=== PATIENT | female | born 1945 | race Caucasian/White ===

== ENCOUNTER 2023-06-03 18:49 | Observation (INO) | payer MEDICARE, OTHER, SELFPAY ==
[2023-06-03] VITALS (21 sets, daily range): BP systolic 100–189; BP diastolic 42–118; BMI 29.7; BMI 29.2
--- NOTE | 2023-06-03 15:05 | EDRN ---
with Dr. Cotton at the pts bedside and with his approval, a stroke alert was called due to the pts symptoms, this RN called the pts son and got the pts onset of symptoms which was today at 1400 and last known well was today at 1400 which was
verified by the pts friend with whom she was with at the Deli
[2023-06-03 15:19] LABS: % Basophils 0.7 % (0-2); % Eosinophils 1.4 % (0-6); % Immature Granulocytes 0.7 % (0-0.5); % Lymphocytes 33.9 % (20.5-51.1); % Monocytes 10.3 % (1.7-9.3); Absolute Basophils 0.1 10^3/uL (0-0.2); Absolute Eosinophils 0.1 10^3/uL (0-0.7); Absolute Immature Granulocytes 0.1 10^3/uL (0-0.05); Absolute Lymphocytes 2.9 10^3/uL (1.2-3.4); Absolute Monocytes 0.9 10^3/uL (0.1-0.6); Absolute Neutrophils 4.6 10^3/uL (1.4-6.5); Hematocrit 33.7 % (37.0-47.0); Mean Corp Hgb Conc. 35.6 g/dL (33.0-37.0); Mean Corpuscular Hgb 32.5 pg (27.0-31.0); Mean Corpuscular Volume 91.3 fL (81.0-99.0); Nucleated Red Blood Cells % 0 %; Platelet Count 307 10^3/uL (130-400); Red Blood Cell Count 3.69 10^6/uL (4.20-5.40); Red Cell Dist. Width 12.1 % (11.5-14.5); White Blood Cell Count 8.6 10^3/uL (4.8-10.8)
[2023-06-03] MEDS: NSS 1000 IV ×2 (15:20→22:23)
--- NOTE | 2023-06-03 15:23 | EDRN ---
the pts son, daughter in law, and friend whom was with her at the restaurant are currently at the pts bedside
[2023-06-03 15:32] LABS: ALT (SGPT) 17 U/L (0-35); AST (SGOT) 30 U/L (14-36); Albumin 3.9 g/dl (3.5-5.0); Alkaline Phosphatase 121 U/L (38-126); Blood Urea Nitrogen 17 mg/dl (7-17); Calcium 10.2 mg/dl (8.4-10.2); Carbon Dioxide 17 mmol/L (22-30); Chloride 103 mmol/L (98-107); Estimated Creatinine Clearance 38 ml/min; Glucose 114 mg/dl (70-99); Sodium 130 mmol/L (135-145); Total Bilirubin 0.4 mg/dl (0.2-1.3); Total Protein 6.2 g/dl (6.3-8.2); eGFR 41.57
--- NOTE | 2023-06-03 15:34 | EDRN ---
Dr. Cotton currently at the pts bedside speaking with the pts son, daughter in law, and friend, the pt is awaiting for second CT scan, Berta DELEON currently with the pt
[2023-06-03 15:39] LABS: COVID-19 Antigen Negative (Negative)
[2023-06-03 16:40] LABS: INR 1.13; PT 14.3 Sec (11.4-14.6)
[2023-06-03 16:41] LABS: APTT 28.4 Sec (23.4-35.0)
--- NOTE | 2023-06-03 17:02 | ED.GENMED ---
History of Present Illness
General
Chief Complaint: Fainting/Passed Out
Source: patient and ambulance crew
Time Seen by Provider: 06/03/23 15:01
Travel History
Have you had any contact with someone who has COVID-19?: Unable to Answer
Do you have any symptoms of coronavirus? Fever > 100 degrees, chills, cough, shortness of breath, sore throat, loss of taste or smell, muscle aches, or headache?: No
History of Present Illness
History of Present Illness:
this is an 78yo female who presents after she passed out at a deli with a friend. on arrival the pt cannot clearly communicate the course of events. However, her friend showed up about 20 minutes after arrival to give history. She had ordered a
sandwich and was going to pay in her card on the counter and just collapsed to the ground. bystanders called 911 and checked her pulse. no cpr was needed. on my evaluation on arrival, the pt was aphasic making hx taking limited. pt denies cp. does
states she suspects she hit her head.
Past History
Past History
ED Past Medical History: HTN and Other (Cataracts, tinnitus,)
ED Past Surgical History: Appendectomy, Gynecological and Orthopedic
Phy Exam
Physical Exam
Physical Exam:
Initial exam
CONSTITUTIONAL Patient alert and oriented to person. Vital signs reviewed.
HEAD atraumatic, normocephalic.
EYES eyelids normal to inspection, Pupils equally round and reactive to light, Extraocular muscles intact, Conjunctiva normal, Sclera normal.
NECK normal range of motion, Trachea midline, no jugular venous distention.
RESPIRATORY CHEST No respiratory distress noted, Chest expansion equal, Bilateral breath sounds clear.
CARDIOVASCULAR regular rate and rhythm, Heart sounds normal.
ABDOMEN abdomen nontender, Bowel sounds normal. No distention.
BACK normal inspection, no obvious deformities
UPPER EXTREMITY range of motion normal, Motor strength normal, no cyanosis, no edema.
LOWER EXTREMITY range of motion normal, Motor strength normal, no cyanosis, no edema.
NEURO moderately aphasic, no pronator drift, no focal motor deficits, Cranial Nerves intact to screening exam.
SKIN skin warm, dry, and normal in color.
Course
Orders/Labs/Results
Orders:
Orders
06/03/23 14:53
Electrocardiogram (*1) Urgent
Reason for Study: Vertigo / Dizzy
EKG- Treatment ONCE
CR Chest - 2 Views Urgent
Comment:
Reason For Exam: shortness of breath
06/03/23 14:54
Complete Blood Count/With Diff Urgent
Comprehensive Metabolic Panel Urgent
Influenza A+B Rapid Molecular Urgent
TANNA Source: Nasal Swab
Specimen Description:
06/03/23 14:55
COVID-19 Antigen Urgent
Source: Nasal Swab
06/03/23 15:07
CT Cervical Spine W/o Iv Contr Stat
Comment:
Reason For Exam: fall
CT Head W/o Cont STROKE ALERT Urgent
Comment:
Reason For Exam: aphasia, fall
06/03/23 15:17
CT Head/Neck Ang STROKE ALERT Urgent
Comment:
Reason For Exam: aphasia
06/03/23 15:18
0.9% Sodium Chloride 1000 ml [Nss] 1,000 ml IV BOLUS
06/03/23 16:13
PTT Urgent
Prothrombin Time Urgent
Abnormal Lab Results
06/03/23
14:54
RBC 3.69 L 10^6/uL
(4.20-5.40)
Hct 33.7 L %
(37.0-47.0)
MCH 32.5 H pg
(27.0-31.0)
Abs Immat Gran (auto) 0.1 H 10^3/uL
(0-0.05)
Absolute Monos (auto) 0.9 H 10^3/uL
(0.1-0.6)
Immature Gran % 0.7 H %
(0-0.5)
Monocytes % 10.3 H %
(1.7-9.3)
Sodium 130 L mmol/L
(135-145)
Carbon Dioxide 17 L mmol/L
(22-30)
Creatinine 1.3 H mg/dL
(0.6-1.0)
Glucose 114 H mg/dl
(70-99)
Total Protein 6.2 L g/dl
(6.3-8.2)
06/03/23 14:54
06/03/23 14:54
Vital Signs
Initial and Last Documented VS:
Initial Vital Signs
Temp Pulse Resp BP Pulse Ox
97.5 F 76 20 104/42 100
06/03/23 14:55 06/03/23 14:55 06/03/23 14:55 06/03/23 14:55 06/03/23 14:55
Last Documented Vital Signs
Temp Pulse Resp BP Pulse Ox
97.5 F 82 10 155/73 98
06/03/23 14:55 06/03/23 16:31 06/03/23 16:31 06/03/23 16:31 06/03/23 16:31
MDM/Problems Addressed
Differential Diagnosis Includes:
CVA, arrhythmia, hypoglycemia, hypovolemia, electrolyte balance, orthostatic hypotension
MDM/Problems Addressed:
Syncope, head injury, TIA
*Radiology
Radiology exam reviewed: preliminary read by ED provider (No obvious intracranial hemorrhage) and radiology read reviewed
*Pulse Oximetry
Patient hypoxic: no
*EKG
Interpreted by ED Provider?: Yes
Interpretation: abnormal
Rate: normal
Rhythm: sinus
Gary: left axis deviation
QRS Pattern: poor R-wave progression
Ischemia: non-specific ST changes
*Manager Style Interpretation
Rate: normal
Interpretation: normal
Rhythm: sinus
*Critical Care Note
Total Time (30-74mins, 75-104mins- exclusive of procedures): 40 minutes
Data Reviewed
Review of Other/Old Records Reveals: Discharge Summary (From August 2021 reviewed)
Source: patient, family, ambulance crew and other (Friend)
Prescriptions/Medications Considered But Not Given:
Considered TNK but upon arriving back from CT, patient's symptoms have completely resolved and her neuro exam is baseline
Patient Management
Discussion with other providers: Hospitalist and Mri Technician (case d/w neurology)
Escalation/DeEscalation of care consider admission/obs:
78-year-old female presents after she had a syncopal event at a store. On arrival she was significantly aphasic. A stroke alert was initiated. Taken to CT scan. Family later arrived and advises that she has a history of a 'bleeding disorder'.
Case was discussed with neurology. Fortunately, her CTA was unremarkable and upon returning from CTA, her aphasia has resolved. On repeat exam her symptoms have resolved completely and her exam is at baseline. No TNK now. Admit.
ED Attending Note
-
Portions of this chart may have been created with voice recognition software.� Occasional wrong word or��sound alike� substitutions may have occurred due to the inherent limitations of voice recognition software.
Discharge Plan
Departure
Patient Disposition: Admit
Date of Disposition: 06/03/23
Time of Disposition: 17:03
Admit to: Telemetry
Presentation/result/management discussed w/ accepting MD/DO: Hospitalist
Discharge Problem:
Syncope and collapse, Head injury, TIA (transient ischemic attack)
Prescriptions:
No Action
polyethylene glycol 3350 17 GRAMS powder in packet
17 grams PO PRN PRN (Reason: constipation) Qty: 0
calcium carbonate 600 MG tablet
600 mg PO DAILY
Patient Comments:
w D3
gabapentin 100 MG capsule
100 mg PO HS
estradiol 1 APPLIC cream
1 applic vaginal HS
cholecalciferol (vitamin D3) 1,000 UNITS tablet
1,000 units PO DAILY
wt-zn-tqhl-FA-Ca carb-vit K [Women's Daily Formula] 1 EACH tablet
1 ea PO DAILY
mupirocin 1 APPLIC ointment
1 applic topical BID Qty: 1 0RF
prednisone 10 MG tablet
40 mg PO TAPER Qty: 20 0RF
Rx Instructions:
take with food
POST-OP USE
hydrocodone-acetaminophen 1 TABLET tablet
1 tab PO Q4HPRN PRN (Reason: moderate-severe pain) Qty: 30 0RF
Rx Instructions:
Dx total joint replacement
ongoing therapy
1 tab moderate pain or 2 if pain severe
meloxicam [Mobic] 15 MG tablet
15 mg PO DAILY Qty: 14 0RF
Rx Instructions:
take with food
space out 2 hours from aspirin
famotidine 20 MG tablet
20 mg PO HS Qty: 30 0RF
ondansetron 4 MG tablet,disintegrating
4 mg PO Q6H PRN (Reason: n/v) Qty: 15 0RF
diltiazem HCl 240 MG capsule,extended release 24hr
240 mg PO DAILY
sennosides [senna] 8.6 MG tablet
17.2 mg PO BID 0RF
acetaminophen 325 MG tablet
650 mg PO Q4HWA 0RF
aspirin 325 MG tablet
325 mg PO DAILY 0RF
magnesium hydroxide 30 ML suspension
30 ml PO DAILYPRN PRN (Reason: constipation) 0RF
docusate sodium 100 MG capsule
100 mg PO BID 0RF
lisinopril 20 MG tablet
30 mg PO DAILY Qty: 0 0RF
Rx Instructions:
hold systolic blood pressure <130
Referrals:
Wade Sheehan DO [Family Provider] -
Interventions
Interventions:
*Risk Screen - Suicide Last Done: 06/03/23 14:55
*General Assessment Last Done: 06/03/23 14:55
*Neglect/Abuse Screening Last Done: 06/03/23 14:55
ED- Fall Risk Assessment Last Done: 06/03/23 14:55
*ED COVID-19 Vaccine History Last Done: 06/03/23 14:55
ED- Cardiac Assessment Last Done: 06/03/23 14:55
ED- Neurological Assessment Last Done: 06/03/23 15:05
--- NOTE | 2023-06-03 18:09 | HPS.HSE ---
Addendum entered and electronically signed by Jimmy Harrison MD 06/03/23 18:48:
I saw and examined the patient.
The SENIOR JAVASCRIPT DEVELOPER or PA's note was reviewed and I agree with the note.
Comment: 78-year-old female with past medical history of hypertension, osteoarthritis came to the hospital after syncopal episode. Per patient prior to passing out she felt hot and then later passed out. Denies any chest pain, shortness of breath.
In the ER patient had aphasia so stroke alert was called. CT scan negative for hemorrhage. Check MRI. Consult neurology. Check UA. Check orthostatics. History of hyponatremia, sodium 130. Monitor
General: Comfortable and Conversant; No Fever or Chills
HEENT: NormoCephalic, Anicteric, Moist mucous membranes
Respiratory: Clear; No Wheezes, Rales or Rhonchi
Cardiac: S1/S2 and Regular Rhythm; No Murmur
GI: Non Tender, Non Distended and Normal Bowel Sounds
Genito-urinary: Deferred by me
Musculoskeletal: No Clubbing, No Cyanosis, No Edema and Other (Tenderness over left anterior thigh no appreciated contusion or abrasion)
Neuro: AO x 3, No Motor Deficits, Nonfocal/grossly intact
Psych: Calm
I spent a total of 77 minutes with the patient or on the floor. More than 50% of this time involved counseling and coordination of care.
Original Note:
Family Physician
-
Family Physician: Wade Sheehan
Chief Complaint
-
Syncope, confusion
History of Present Illness
78-year-old female who was at the [facility] with a friend when she stated that she started to feel hot. She reports she asked her friend Blanca to help remove her jacket. When she turned around she apparently then had a syncopal episode and woke up on
the ground. She reports she was having some difficulty talking now that she remembers. On arrival to the ER she was noted to be slightly confused talking but with some word replacement. She does report feeling currently lightheaded and dizzy.
Her blood pressure is labile going from 100 systolic to 180. She reports she just had a follow-up with her gas operation manager comprehensive cardiology at [facility] 1 month ago where she had a normal echo. She also had recent follow-up
with her oncologist and had normal mammogram as outpatient.
She has past medical history of hypertension, tinnitus, cataracts, obesity, OA, right-sided breast cancer with right lumpectomy and radiation times 06 February 2022
Medical History
Past Medical History
Past Medical History: Reports Other
Additional Past Medical History:
hypertension
, tinnitus,
cataracts
obesity
OA
Right-sided breast cancer with radiation x 20 and lumpectomy [facility]
Past Surgical History: Reports Other (Appendectomy, Right-sided breast cancer with radiation x 20 and lumpectomy [facility])
Social History
Tobacco: Non-smoker
Alcohol: None
Drug: None
Employment: Retired
Family History
Family History: Other (Mother history of CVA age 83, Alzheimer's, father CHF, COPD, alcohol abuse age 79)
Allergies / Home Medications
Allergies reflects when Allergies were last updated in [facility].
Home Medications with original date entered in [facility]
Allergy/Medication List:
Allergies
Allergy/AdvReac Type Severity Reaction Status Date / Time
metronidazole [From Metrogel] Allergy Rash Verified 08/23/21 05:58
Home Medications
anastrozole 1 mg tablet 1 mg PO DAILY 06/03/23
calcium carbonate 600 mg calcium (1,500 mg) tablet (Calcium) 600 mg PO DAILY 06/03/23
carboxymethylcellulose sodium 1 % eye liquid gel drops 1 drp BOTH EYES BID 06/03/23
cholecalciferol (vitamin D3) 25 mcg (1,000 unit) tablet 25 mcg PO DAILY 06/03/23
diltiazem HCl 240 mg capsule,24 hr,extended release 240 mg PO DAILY 06/03/23
estradiol 0.01% (0.1 mg/gram) vaginal cream 1 appful vaginal .2 TIMES A WEEK@2200 06/03/23
gabapentin 100 mg capsule 100 mg PO HS 06/03/23
lisinopril 30 mg tablet 30 mg PO DAILY 06/03/23
cecrysit-zvl-wiba-FA-Ca carb-vit K 18 mg iron-400 mcg-500 mg tablet 1 tab PO DAILY 06/03/23
polyethylene glycol 3350 17 gram oral powder packet (Miralax) 17 g PO DAILY PRN constipation 06/03/23
Review of Systems
-
History Source: Patient and Family
A 12 point ROS was completed and negative except as noted: Yes
Constitutional: Denies Fever or Fatigue
Respiratory: Denies Cough or Trouble Breathing
Cardiac: Reports Syncope; Denies Chest Pain or Palpitations
Abdomen/GI: Denies Abdominal Pain, Nausea, Vomiting or Diarrhea
: Denies Dysuria, Frequency or Flank Pain
Musculoskeletal: Reports Other; Denies Joint Pain or Edema
Skin: Denies Itching or Rash
Neurological: Reports Dizzy; Denies Headache
Endocrine: Reports See HPI
Hematologic/Lymphatic: Reports See HPI
Psych: Reports Calm
Physical Exam
Vital Signs
Vital Signs
Temp Pulse Resp BP Pulse Ox
97.5 F 82 10 155/73 98
06/03/23 14:55 06/03/23 16:31 06/03/23 16:31 06/03/23 16:31 06/03/23 16:31
Physical Exam
General: Comfortable and Conversant; No Fever or Chills
HEENT: NormoCephalic, Anicteric, Moist mucous membranes, PERRLA, [place] Conjunctivae and No Ptosis
Respiratory: Clear; No Wheezes, Rales or Rhonchi
Cardiac: S1/S2 and Regular Rhythm; No Murmur, Rub, Gallop or Peripheral Edema
GI: Non Tender, Non Distended and Normal Bowel Sounds
Genito-urinary: Deferred by me
Musculoskeletal: No Clubbing, No Cyanosis, No Edema and Other (Tenderness over left anterior thigh no appreciated contusion or abrasion)
Skin: Warm and Dry; No Rash or Jaundice
Neuro: AO x 3, No Motor Deficits, Nonfocal/grossly intact, Cranial Nerves Intact and No Sensory Deficits; No Slurred Speech, Facial Droop or Tremors
Psych: Calm
Laboratory Results
-
06/03/23 14:54
06/03/23 14:54
Laboratory Results
PT 14.3 Sec (11.4-14.6) 06/03/23 16:13
INR 1.13 06/03/23 16:13
APTT 28.4 Sec (23.4-35.0) 06/03/23 16:13
Total Bilirubin 0.4 mg/dl (0.2-1.3) 06/03/23 14:54
AST 30 U/L (14-36) 06/03/23 14:54
ALT 17 U/L (0-35) 06/03/23 14:54
Alkaline Phosphatase 121 U/L (38-126) 06/03/23 14:54
Impression/Plan
-
Impression/plan:
Observation telemetry
#Acute syncope with aphasia concern for CVA/TIA versus orthostatic hypotension
COVID/flu negative
-Neurochecks every 4 hours
-Orthostatic vitals bid
-Check cortisol, TSH with free T4 reflex in a.m.
-MRI brain
-UA CARD FEEDER reflex
-Consult neurology
-PT/OT/case management eval
-Speech therapy eval
Head and neck CTA: No significant vascular occlusion, aneurysm or dissection
CT head: No acute intracranial abnormality
Cervical spine: No acute fracture. Multilevel degenerative changes of the cervical spine
CXR : No acute cardiopulmonary process
EKG: Sinus rhythm with first-degree AV block 76 bpm, QTc 497 MS
#Labile HTN/hypotension
100/73> 155/73
-Hold lisinopril 30 mg daily
-cont diltiazem 240 mg daily with hold parameters
ROMIE
Creat 1.3 prior baseline of 18 August 2021
-Hold lisinopril 30 mg daily
#OA
no meds
#Obesity due to excess calorie consumption�BMI 29.7 kg
Healthy heart diet, weight loss recommended
DVT prophylaxis
SCDs
Full code
[2023-06-03] MEDS: TYLENOL 1000 MG PO (18:12)
[2023-06-03] MEDS: ASPIRIN 325 MG PO (19:05)
--- NOTE | 2023-06-03 22:00 | PTCARENOTE ---
Received pt from ED, pt unable to walk due to feeling 'weak'. VSS, no complaints of pain. IVF as ordered
[2023-06-03] MEDS: NEURONTIN 100 MG PO (22:23)
[2023-06-03] MEDS: REFRESH CELLUVISC GEL BOTH EYES (22:38)
[2023-06-04] VITALS (7 sets, daily range): BP systolic 134–171; BP diastolic 63–86; PULSE 71–106; O2SAT 98; BMI 29.4
[2023-06-04 08:09] LABS: % Basophils 0.4 % (0-2); % Eosinophils 1.8 % (0-6); % Immature Granulocytes 0.6 % (0-0.5); % Lymphocytes 15.9 % (20.5-51.1); % Monocytes 10.2 % (1.7-9.3); % Neutrophils 71.1 % (42.2-75.2); Absolute Eosinophils 0.2 10^3/uL (0-0.7); Absolute Immature Granulocytes 0.1 10^3/uL (0-0.05); Absolute Lymphocytes 1.4 10^3/uL (1.2-3.4); Absolute Monocytes 0.9 10^3/uL (0.1-0.6); Absolute Neutrophils 6.1 10^3/uL (1.4-6.5); Hematocrit 32.8 % (37.0-47.0); Hemoglobin 11.1 g/dL (12.0-16.0); Mean Corp Hgb Conc. 33.8 g/dL (33.0-37.0); Mean Corpuscular Hgb 31.8 pg (27.0-31.0); Mean Platelet Volume 9.1 fL (7.4-10.4); Nucleated Red Blood Cells % 0 %; Platelet Count 262 10^3/uL (130-400); Red Blood Cell Count 3.49 10^6/uL (4.20-5.40); Red Cell Dist. Width 12.4 % (11.5-14.5); White Blood Cell Count 8.5 10^3/uL (4.8-10.8)
[2023-06-04 08:46] LABS: ALT (SGPT) 14 U/L (0-35); AST (SGOT) 25 U/L (14-36); Albumin 3.3 g/dl (3.5-5.0); Alkaline Phosphatase 100 U/L (38-126); Blood Urea Nitrogen 16 mg/dl (7-17); Carbon Dioxide 26 mmol/L (22-30); Chloride 100 mmol/L (98-107); Estimated Creatinine Clearance 49 ml/min; Glucose 73 mg/dl (70-99); HDL Cholesterol 57 mg/dl; LDL Cholesterol, Calculated 65 mg/dl; Sodium 131 mmol/L (135-145); Total Bilirubin 0.4 mg/dl (0.2-1.3); Total Cholesterol 142 mg/dl (50-199); Total Protein 5.5 g/dl (6.3-8.2); Triglyceride 104 mg/dl (10-149); Very Low Density Lipoprotein 20 mg/dl (0-30); eGFR 56.95
[2023-06-04] MEDS: REFRESH CELLUVISC GEL 1 DROPS BOTH EYES ×2 (09:18→20:51)
[2023-06-04] MEDS: ARIMIDEX 1 MG PO (09:18)
[2023-06-04 09:19] LABS: Cortisol, Random 13.5 ug/dl
[2023-06-04] MEDS: CARDIZEM CD 240 MG PO (09:21)
[2023-06-04] MEDS: OSCAL CAL 500 500 MG PO (09:22)
[2023-06-04] MEDS: VITAMIN D3 (cholecalciferol) 25 MCG PO (09:22)
[2023-06-04] MEDS: LOW STRENGTH ASPIRIN 81 MG PO (09:22)
[2023-06-04] MEDS: LIDOCAINE 4% PATCH 1 PATCH TOPICAL (10:20)
--- NOTE | 2023-06-04 10:32 | PTCARENOTE ---
Patient with complaints of pain in lower back. MD aware. Lidocaine patch ordered and applied. Xray of area completed. Tylenol as ordered for pain relief if needed. Air cushion ordered for patient comfort.
--- NOTE | 2023-06-04 12:39 | W.PN.HOSP.TC ---
Today's Communication/Plan
-
Monitor vital signs see plan
MRI pending
Continue monitor orthostatics
Apply teds
pt/ot
CT coccyx
Assessment / Plan
Assessment / Plan
� ��Head and neck CTA: No significant vascular occlusion, aneurysm or dissection
�� � � � � ��CT head:�No acute intracranial abnormality
�� � � � ���Cervical spine:�No acute fracture.� Multilevel degenerative changes of the cervical spine
�� � � � � � CXR : No acute cardiopulmonary process
General: Comfortable and Conversant; No Fever or Chills
HEENT: NormoCephalic, Anicteric, Moist mucous membranes
Respiratory: Clear; No Wheezes, Rales or Rhonchi
Cardiac: S1/S2 and Regular Rhythm; No Murmur
GI: Non Tender, Non Distended and Normal Bowel Sounds
Genito-urinary: Deferred by me
Musculoskeletal: No Clubbing, No Cyanosis, No Edema and Other (Tenderness over left anterior thigh no appreciated contusion or abrasion)
Neuro: AO x 3, No Motor Deficits, Nonfocal/grossly intact
Psych: Calm
Acute syncope with aphasia concern for CVA/TIA versus orthostasis or vasovagal event
COVID/flu negative
-Neurochecks
-Orthostatic vitals bid; HR did went up
-Cortisol, TSH normal
-MRI brain 10
-UA KILN CAR REPAIRER reflex
-Consult neurology
-PT/OT
cw aspirin
TEDS
Coccyx pain
check xray shows probably coccyx fx; check CT
lidocane patch
#Labile HTN/hypotension
-Hold lisinopril
-cont diltiazem 240 mg daily with hold parameters
renal insufficiency
Monitor
-Hold lisinopril 30 mg daily
#OA
no meds
#Obesity due to excess calorie consumption�BMI 29.7 kg
DVT prophylaxis
lovenox
Full code
Anticipated Discharge: Within 24 hours
Subjective/Interval History
-
Date of Service: June 04, 2023
denies pain
Objective Data
-
Labs:
Laboratory Results
06/04/23
07:05
WBC 8.5
Hgb 11.1 L
Hct 32.8 L
Plt Count 262
Sodium 131 L
Potassium 4.0
Chloride 100
Carbon Dioxide 26
BUN 16
Creatinine 1.0
Glucose 73
Calcium 9.0
Total Bilirubin 0.4
AST 25
ALT 14
Alkaline Phosphatase 100
Vital Signs:
Vital Signs
Temp Pulse Resp BP Pulse Ox
98.2 F 71 16 138/68 97
06/04/23 09:22 06/04/23 09:22 06/04/23 09:22 06/04/23 09:22 06/04/23 09:22
I&O
06/03/23 06/04/23 06/05/23
06:59 06:59 06:59
Output Total 400 / 400
Balance -400 / -400
--- NOTE | 2023-06-04 13:35 | CON.NEURO4 ---
Addendum entered and electronically signed by Gretchen Schultz, DO 06/04/23 19:34:
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
Continue ASA 81mg daily given old stroke on MRI (of which she was not aware).
Needs outpatient f/u with neurology. Signing off, please call with further questions.
Original Note:
Consultation - Neurology 4
-
CONSULTING PHYSICIAN: Marion
REFERRING PHYSICIAN: ED
DICTATED BY: Marion
DATE/TIME OF REQUEST: 06/03/23 in the evening
DATE/TIME OF CONSULTATION: 06/04/23 at 1145
Reason for Consultation: stroke alert
History of Present Illness:
78-year-old female with a past medical history of hypertension and breast cancer brought in yesterday after a witnessed syncopal episode. She was standing in a deli when she 'felt hot all over' and passed out. Loss of consciousness lasted about 90
seconds to 2 minutes in duration. No clear convulsive activity associated. No bowel or bladder incontinence. She hit the left temporoparietal region as she fell. When she woke up she had some aphasia. This eventually resolved in the ER. No
other associated focal neurological deficits. She has had 4 total episodes of loss of consciousness in her life, some associated with blood draw/hot weather. She follows closely with cardiology at [facility]. She has never had a seizure. No
clear history of [employer] infection or family history of seizure. Remains back to baseline since admission.
Past Medical History:
hypertension
tinnitus
cataracts
obesity
�OA
Right-sided breast cancer with radiation x 20 and lumpectomy
Past Surgical History:
Appendectomy
Right-sided breast cancer with radiation x 20 and lumpectomy at [facility]
Social History
Tobacco: Non-smoker
Alcohol: None
Drug: None
Employment: Retired
Family History:
Mother history of CVA at age 83, Alzheimer's
Father CHF, COPD, alcohol abuse
Allergies
metronidazole [From Metrogel] Allergy (Verified 08/23/21 05:58)
Rash
Home Medications
Medication Instructions Recorded
anastrozole 1 mg tablet 1 mg PO DAILY BREAST CANCER 06/03/23
calcium carbonate 600 mg calcium 600 mg PO DAILY Supplement 06/03/23
(1,500 mg) tablet (Calcium)
carboxymethylcellulose sodium 1 % 1 drp BOTH EYES BID Eye Condition 06/03/23
eye liquid gel drops
cholecalciferol (vitamin D3) 25 25 mcg PO DAILY Supplement 06/03/23
mcg (1,000 unit) tablet
diltiazem HCl 240 mg capsule,24 240 mg PO DAILY Blood Pressure 06/03/23
hr,extended release
estradiol 0.01% (0.1 mg/gram) 1 appful vaginal .2 TIMES A 06/03/23
vaginal cream WEEK@2200
gabapentin 100 mg capsule 100 mg PO HS Pain 06/03/23
lisinopril 30 mg tablet 30 mg PO DAILY Blood Pressure 06/03/23
ookwfbzl-ler-zfkz-FA-Ca carb-vit K 1 tab PO DAILY Supplement 06/03/23
18 mg iron-400 mcg-500 mg tablet
polyethylene glycol 3350 17 gram 17 g PO DAILY PRN constipation 06/03/23
oral powder packet (Miralax)
Review of Symptoms:
Patient denies any fever, headache, chest pain, shortness of breath, GI or symptoms.
�Per the HPI.�All systems are reviewed negative except above.
Vital Signs
Temp Pulse Resp BP Pulse Ox
98.2 F 71 16 138/68 97
06/04/23 09:22 06/04/23 09:22 06/04/23 09:22 06/04/23 09:22 06/04/23 09:22
Lab Results
06/04/23 07:05
06/04/23 07:05
PT 14.3 Sec (11.4-14.6) 06/03/23 16:13
INR 1.13 06/03/23 16:13
APTT 28.4 Sec (23.4-35.0) 06/03/23 16:13
Sodium 131 mmol/L (135-145) L 06/04/23 07:05
Potassium 4.0 mmol/L (3.5-5.1) 06/04/23 07:05
BUN 16 mg/dl (7-17) 06/04/23 07:05
Glucose 73 mg/dl (70-99) 06/04/23 07:05
Calcium 9.0 mg/dl (8.4-10.2) 06/04/23 07:05
LDL Cholesterol, Calc 65 mg/dl 06/04/23 07:05
Physical Exam:
The patient is afebrile, heart sounds S1 and S2 are regular, and chest is clear to auscultation bilaterally.
NIH Stroke Scale:
I performed the NIH stroke scale on the patient on 06/04/23 at 1145. The patient scored 0 points on the NIH stroke scale assessment.
Neurologic Examination:
The patient is awake, alert and oriented x 3. She is able to follow commands and answer questions appropriately. There is no aphasia or dysarthria. On cranial nerve assessment, pupils are 3 mm bilateral, round and reactive to light and
accommodation. Visual waters are full. Extraocular movements are intact. Facial sensations are intact and bilaterally symmetrical, there is no facial asymmetry. Hearing is intact bilaterally to normal conversation volume. Tongue palate and uvula
are midline. Sternocleidomastoid strengths are full bilaterally. Motor strengths are 5/5 bilateral upper and lower extremities on medical research [place] scale. There is no drift or involuntary movement noted. Deep tendon reflexes are 2+ bilateral
upper and lower extremities and Babinski is absent bilaterally. Sensations of pain, touch, temperature and vibration are intact and bilaterally symmetrical. There was no extinction noted on double simultaneous stimulation. Coordination is intact by
finger to nose bilaterally.
Neuro Imaging:
HCT/CT Cspine wo:
'1. No acute intracranial abnormality noted. ASPECTS Score: 10
2. No acute fracture or subluxation of the cervical spine. Multilevel degenerative changes of the cervical spine.'
CTA head
No significant vascular occlusion, aneurysm or dissection.
CHAVA BUENROSTRO is a 78 year old F who has presented to the hospital with aphasia after an episode of LOC resulting in L parietal/temporal head trauma. No clear associated seizure activity. Aphasia resolved in the ED. Has remained at baseline since.
Differentials for the patient's presentation include:
1. postconcussive aphasia with L parietal/temporal head trauma with syncope
2. seizure with postictal aphasia--less likely
3. TIA--less likely
Patient has the following risk factors for their symptoms: age, htn, cancer hx
IV Tenecteplase/IAT candidacy: not a candidate given resolution of symptoms/CTA negative for clot
Recommendations:
1. MRI brain w/wo contrast
2. consider outpatient EEG
3. BP has been labile; follows with [facility]; continue orthostatics, TEDs
4. needs outpatient f/u with neurology in 4 weeks
5. continue ASA 81mg daily; no need for DAPT unless MRI shows stroke given lower likelihood of stroke/TIA as cause for symptoms.
Ok for d/c if MRI brain negative.
Discussed patient care with: ED, patient and her family
--- NOTE | 2023-06-04 15:36 | PTCARENOTE ---
Patient went for coccyx xray, MRI of head and CT of coccyx area today. Patient with complaints of headache when she returned from testing, otherwise neuro status unchanged. MD martinez and Tylenol ordered.
[2023-06-04] MEDS: TYLENOL 650 MG PO (15:41)
--- NOTE | 2023-06-04 15:55 | CM ---
Alert awake oriented patient who lives alone she lives in an apartment with no steps to enter living area.She is independent in driving and in all activities of daily living.Offered VN she declined.She uses no adaptive devices.
Had [facility] hx /No SNF hx
Pharmacy [facility] [address] [place]
PCP Dr Morley
PLAN Home declined VN
[2023-06-04] MEDS: LOVENOX 40 MG SC (17:54)
[2023-06-04] MEDS: NEURONTIN 100 MG PO (20:51)
[2023-06-05] VITALS (7 sets, daily range): BP systolic 124–169; BP diastolic 73–93; PULSE 74–113; BMI 29.3
[2023-06-05 08:40] LABS: % Basophils 0.4 % (0-2); % Eosinophils 2.8 % (0-6); % Immature Granulocytes 0.7 % (0-0.5); % Lymphocytes 21.8 % (20.5-51.1); % Neutrophils 63.3 % (42.2-75.2); Absolute Eosinophils 0.2 10^3/uL (0-0.7); Absolute Immature Granulocytes 0.1 10^3/uL (0-0.05); Absolute Lymphocytes 1.5 10^3/uL (1.2-3.4); Absolute Monocytes 0.8 10^3/uL (0.1-0.6); Absolute Neutrophils 4.5 10^3/uL (1.4-6.5); Hematocrit 34.4 % (37.0-47.0); Hemoglobin 12.1 g/dL (12.0-16.0); Mean Corp Hgb Conc. 35.2 g/dL (33.0-37.0); Mean Corpuscular Hgb 32.4 pg (27.0-31.0); Mean Corpuscular Volume 92.2 fL (81.0-99.0); Mean Platelet Volume 8.9 fL (7.4-10.4); Nucleated Red Blood Cells % 0 %; Platelet Count 264 10^3/uL (130-400); Red Blood Cell Count 3.73 10^6/uL (4.20-5.40); Red Cell Dist. Width 12.4 % (11.5-14.5); White Blood Cell Count 7.1 10^3/uL (4.8-10.8)
[2023-06-05 09:09] LABS: Blood Urea Nitrogen 15 mg/dl (7-17); Calcium 9.3 mg/dl (8.4-10.2); Carbon Dioxide 23 mmol/L (22-30); Chloride 101 mmol/L (98-107); Estimated Creatinine Clearance 54 ml/min; Glucose 83 mg/dl (70-99); Potassium 3.9 mmol/L (3.5-5.1); Sodium 133 mmol/L (135-145); eGFR > 60.00
[2023-06-05] MEDS: ARIMIDEX 1 MG PO (09:30)
[2023-06-05] MEDS: VITAMIN D3 (cholecalciferol) 25 MCG PO (09:31)
[2023-06-05] MEDS: OSCAL CAL 500 500 MG PO (09:31)
[2023-06-05] MEDS: REFRESH CELLUVISC GEL 1 DROPS BOTH EYES ×2 (09:31→20:50)
[2023-06-05] MEDS: CARDIZEM CD 240 MG PO (09:31)
[2023-06-05] MEDS: LOW STRENGTH ASPIRIN 81 MG PO (09:31)
[2023-06-05] MEDS: LIDOCAINE 4% PATCH 1 PATCH TOPICAL (09:32)
[2023-06-05] MEDS: MIRALAX 17 GRAMS PO (09:36)
--- NOTE | 2023-06-05 11:34 | W.PN.HOSP.TC ---
Today's Communication/Plan
-
see bold, follow orthostatic VS off lisinopril
Assessment / Plan
Assessment / Plan
Gen: NAD, AAOx3.
Eyes: EOMI, PERRLA, no scleral icterus.
Neck: supple.
CV: RRR, +S1/S2, no m/r/g.
Resp: CTAB, no rales, wheezes, or rhonchi.
Abd: +BS, soft, NT, ND
Skin: No rashes.
Neuro: CN 2-12 intact, non-focal.
Psych: Normal mood and affect.
CTA head/neck: No significant vascular occlusion, aneurysm or dissection
CT head:�No acute intracranial abnormality
CT C-spine:�No acute fracture.� Multilevel degenerative changes of the cervical spine
CXR: No acute cardiopulmonary process
CT Pelvis: No acute fractures. Chronic deformity of the coccyx.
MRI brain: No acute intracranial abnormality noted.
Acute syncope with aphasia:
-on admission DDx was CVA/TIA vs orthostasis vs vasovagal event
-acute CVA has been ruled out MRI brain NEG for acute CVA.
-cont ASA for old CVA
-neuro saw in c/s, has signed off
-COVID/flu negative
-Cortisol/TSH normal
-orthostatic VS positive
-PT/OT
-Tele reviewed, PVCs
-check echo
Other problemsL
Essential HTN: currently on Cardizem, home Lisinopril stopped
Coccyx pain, imaging with old deformity of the coccyx
Osteoarthritis
Obesity due to excess calories
FULL/Lovenox
Anticipated Discharge: Within 24 hours
Subjective/Interval History
-
Date of Service: June 05, 2023
Denies CP/SOB.
Objective Data
-
Labs:
Laboratory Results
06/05/23
07:30
WBC 7.1
Hgb 12.1
Hct 34.4 L
Plt Count 264
Sodium 133 L
Potassium 3.9
Chloride 101
Carbon Dioxide 23
BUN 15
Creatinine 0.9
Glucose 83
Calcium 9.3
Vital Signs:
Vital Signs
Temp Pulse Resp BP Pulse Ox
97.8 F 75 20 150/80 97
06/05/23 07:25 06/05/23 07:25 06/05/23 07:25 06/05/23 07:25 06/05/23 07:25
I&O
06/04/23 06/05/23 06/06/23
06:59 06:59 06:59
Intake Total 1440 / 1440
Output Total 400 / 400 1475 / 1475
Balance -400 / -400 -35 / -35
[2023-06-05] MEDS: LOVENOX 40 MG SC (17:17)
[2023-06-05] MEDS: NEURONTIN 100 MG PO (20:50)
[2023-06-06 03:19] VITALS: BP 135/64
[2023-06-06 07:20] VITALS: BP 122/79; BP 149/72; BP 156/84; PULSE 112; PULSE 73; PULSE 89
[2023-06-06] MEDS: LIDOCAINE 4% PATCH 1 PATCH TOPICAL (07:40)
[2023-06-06] MEDS: TYLENOL 650 MG PO (07:40)
[2023-06-06 08:16] LABS: % Basophils 0.6 % (0-2); % Eosinophils 4.2 % (0-6); % Immature Granulocytes 0.6 % (0-0.5); % Lymphocytes 20.9 % (20.5-51.1); % Monocytes 12.6 % (1.7-9.3); % Neutrophils 61.1 % (42.2-75.2); Absolute Eosinophils 0.3 10^3/uL (0-0.7); Absolute Lymphocytes 1.4 10^3/uL (1.2-3.4); Absolute Monocytes 0.9 10^3/uL (0.1-0.6); Absolute Neutrophils 4.2 10^3/uL (1.4-6.5); Hematocrit 32.4 % (37.0-47.0); Hemoglobin 11.2 g/dL (12.0-16.0); Mean Corp Hgb Conc. 34.6 g/dL (33.0-37.0); Mean Corpuscular Hgb 32.1 pg (27.0-31.0); Mean Corpuscular Volume 92.8 fL (81.0-99.0); Mean Platelet Volume 8.8 fL (7.4-10.4); Nucleated Red Blood Cells % 0 %; Platelet Count 250 10^3/uL (130-400); Red Blood Cell Count 3.49 10^6/uL (4.20-5.40); Red Cell Dist. Width 12.4 % (11.5-14.5); White Blood Cell Count 6.8 10^3/uL (4.8-10.8)
[2023-06-06 08:27] LABS: Blood Urea Nitrogen 19 mg/dl (7-17); Calcium 8.8 mg/dl (8.4-10.2); Carbon Dioxide 24 mmol/L (22-30); Chloride 105 mmol/L (98-107); Estimated Creatinine Clearance 54 ml/min; Glucose 80 mg/dl (70-99); Sodium 132 mmol/L (135-145); eGFR > 60.00
[2023-06-06] MEDS: ARIMIDEX 1 MG PO (08:33)
[2023-06-06] MEDS: OSCAL CAL 500 500 MG PO (08:33)
[2023-06-06] MEDS: LOW STRENGTH ASPIRIN 81 MG PO (08:33)
[2023-06-06] MEDS: REFRESH CELLUVISC GEL 1 DROPS BOTH EYES (08:33)
[2023-06-06] MEDS: VITAMIN D3 (cholecalciferol) 25 MCG PO (08:34)
[2023-06-06] MEDS: CARDIZEM CD 240 MG PO (08:34)
--- NOTE | 2023-06-06 10:33 | W.PN.HOSP.TC ---
Today's Communication/Plan
-
monitor vitals
see plan
dc today
son updated over the phone
Time of discharge 36 minutes
Assessment / Plan
Assessment / Plan
Gen: NAD, AAOx3.
Eyes: EOMI, PERRLA, no scleral icterus.
Neck: supple.
CV: RRR, +S1/S2, no m/r/g.
Resp: CTAB, no rales, wheezes, or rhonchi.
Abd: +BS, soft, NT, ND
Skin: No rashes.
Neuro: CN 2-12 intact, non-focal.
Psych: Normal mood and affect.
CTA head/neck: No significant vascular occlusion, aneurysm or dissection
CT head:�No acute intracranial abnormality
CT C-spine:�No acute fracture.� Multilevel degenerative changes of the cervical spine
CXR: No acute cardiopulmonary process
CT Pelvis: No acute fractures. Chronic deformity of the coccyx.
MRI brain: No acute intracranial abnormality noted.
Acute syncope with aphasia:
-on admission DDx was CVA/TIA vs orthostasis vs vasovagal event
-acute CVA has been ruled out MRI brain NEG for acute CVA.
-cont ASA for old CVA
-neuro saw in c/s, has signed off
-COVID/flu negative
-Cortisol/TSH normal
-orthostatic VS positive; now not symptomatic; advised TEDS. Patient to follow-up with PCP outpatient
-PT/OT
-Tele reviewed, PVCs
-check echo with mild AAS. Incidental 2 possible liver cyst. Patient to follow-up with primary care for abdominal ultrasound
Mild hyponatremia
Monitor
Other problemsL
Essential HTN: currently on Cardizem, home Lisinopril stopped
Coccyx pain, imaging with old deformity of the coccyx
Osteoarthritis
Obesity due to excess calories
FULL/Lovenox
Anticipated Discharge: Today
Subjective/Interval History
-
Date of Service: June 06, 2023
denies pain
Objective Data
-
Labs:
Laboratory Results
06/06/23
07:05
WBC 6.8
Hgb 11.2 L
Hct 32.4 L
Plt Count 250
Sodium 132 L
Potassium 4.0
Chloride 105
Carbon Dioxide 24
BUN 19 H
Creatinine 0.9
Glucose 80
Calcium 8.8
Vital Signs:
Vital Signs
Temp Pulse Resp BP Pulse Ox
98.4 F 73 16 149/72 95
06/06/23 07:20 06/06/23 07:20 06/06/23 07:20 06/06/23 07:20 06/06/23 07:20
I&O
06/05/23 06/06/23 06/07/23
06:59 06:59 06:59
Intake Total 1440 / 1440 780 / 780
Output Total 1475 / 1475 600 / 600
Balance -35 / -35 180 / 180
--- NOTE | 2023-06-06 11:02 | W.DCSUMMARY ---
Discharge Summary
Discharge Data
Date of Admission: 06/03/23
Date of Discharge: 06/06/23
-
Pending Results: No
Hospital Course
78-year-old female with past medical history of essential hypertension, osteoarthritis, obesity came to the hospital after syncopal episode. CT scan was initially checked which was negative for CVA. MRI brain was later done which was also negative
for acute CVA however did had old infarct. Patient was seen by neurology throughout hospitalization. Given old infarct patient was started on aspirin. Patient was also orthostatic positive so was started with teds. Cortisol and thyroid was
checked which was normal. Echocardiogram was also done which showed mild aortic stenosis. There was also incidental liver cyst for which patient instructed to follow-up with PCP outpatient. These findings were discussed with the son over the
phone prior to patient's discharge. Given his orthostatics, her lisinopril was stopped. Patient was also eval by physical therapy who recommended home. Once her symptoms improved, she was then discharged home with instructions to follow-up with
all her physicians outpatient.
Discharge Plan
-
Patient Disposition: Home (Routine Discharge)
Discharge Diagnosis/Procedures: Syncope
Orthostatic hypotension
Mild hyponatremia
old stroke
Incidental possible liver cyst
Diet: As tolerated
Activity: As tolerated
Driving Restrictions: As prior to admission
Bathing Restrictions: None
Others Tests: Ultrasound abdomen outpatient with primary care provider
Activity Restrictions/Additional Instructions:
Please follow-up with your data base administrator outpatient
Referrals:
Wade Sheehan DO [Family Provider] - in less than 1 week
Gretchen Schultz DO [Active] -
Prescriptions:
New
lidocaine 4 % Adhesive Patch,Medicated
1 patch topical DAILY Qty: 30 0RF
aspirin [Children's Aspirin] 81 mg Tablet,Chewable
81 mg PO DAILY Qty: 30 0RF
Continued
anastrozole 1 mg Tablet
1 mg PO DAILY
polyethylene glycol 3350 [Miralax] 17 gram Powder In Packet
17 g PO DAILY PRN (Reason: constipation)
diltiazem HCl 240 mg Capsule,Extended Release 24 Hr
240 mg PO DAILY
calcium carbonate [Calcium 600] 600 mg calcium (1,500 mg) Tablet
600 mg PO DAILY
gabapentin 100 mg Capsule
100 mg PO HS
estradiol 0.01 % (0.1 mg/gram) Cream
1 appful VAGINAL .2 TIMES A WEEK@2200
carboxymethylcellulose sodium 1 % Drops, Liquid Gel
1 drp BOTH EYES BID
cholecalciferol (vitamin D3) 25 mcg (1,000 unit) Tablet
25 mcg PO DAILY
yn-lj-ogib-FA-Ca carb-vit K 18 mg iron-400 mcg-500 mg Tablet
1 tab PO DAILY
Discontinued
lisinopril 30 mg Tablet
30 mg PO DAILY
Discharge Orders:
Discharge Patient (As Directed); Ordered 06/06/23
Ordered By: Jimmy Harrison
Discharge Date and Time
Discharge Date/Time: 06/06/23 12:45
[2023-06-06 11:25] VITALS: BP 127/71
== END 2023-06-06 12:45 | disposition home or self-care (01) ==
LOC: 4 EAST ACU 18:49
PROVIDERS: Clinical Nurse Specialist Family Health; ADMITTING PHYSICIAN Internal Medicine; CONSULT PHYSICIAN Psychiatry & Neurology Neurology; EMERGENCY PHYSICIAN Emergency Medicine; FAMILY PHYSICIAN Family Medicine
DX: R55 Syncope and collapse (principal); R47.01 Aphasia; I10 Essential (primary) hypertension; N17.9 Acute kidney failure, unspecified; M47.812 Spondylosis without myelopathy or radiculopathy, cervical region; M47.816 Spondylosis without myelopathy or radiculopathy, lumbar region; M53.3 Sacrococcygeal disorders, not elsewhere classified; E87.1 Hypo-osmolality and hyponatremia; E66.09 Other obesity due to excess calories; M16.11 Unilateral primary osteoarthritis, right hip; Z79.52 Long term (current) use of systemic steroids; Z79.891 Long term (current) use of opiate analgesic; Z92.3 Personal history of irradiation; Z85.3 Personal history of malignant neoplasm of breast; Z88.1 Allergy status to other antibiotic agents; Z79.811 Long term (current) use of aromatase inhibitors; Z82.49 Family history of ischemic heart disease and other diseases of the circulatory system; Z82.3 Family history of stroke; Z81.1 Family history of alcohol abuse and dependence; Z83.6 Family history of other diseases of the respiratory system; Z68.29 Body mass index [BMI] 29.0-29.9, adult; Z11.52 Encounter for screening for COVID-19; Z86.73 Personal history of transient ischemic attack (TIA), and cerebral infarction without residual deficits
CPT/HCPCS: 70450; 70496; 70498; 70551; 71046; 72125; 72170; 72192; 72220; 80048; 80053; 80061; 82533; 84443; 85025; 85610; 85730; 87502; 87811; 93005; 93306; 96360; 97162; 97166; 99291; G0378; Q9967

== ENCOUNTER → 2023-12-20 13:10 | Outpatient (REF) | payer MEDICARE, OTHER, SELFPAY | LOC: RAD 13:10 | PROVIDERS: ATTENDING PHYSICIAN Family Medicine | DX: K76.89 Other specified diseases of liver (principal) | CPT/HCPCS: 76700 ==